=== PATIENT | female | born 1930 | race Caucasian/White ===

== ENCOUNTER 2016-12-26 16:53 | Emergency (ER) | payer MEDICARE, OTHER ==
[~2016-12-26] VITALS: Ht 154.9 cm; Wt 59.1 kg
[~2016-12-26 16:53] MED LIST: AMLO-39 PO; ASPI-973 PO; ATOR20TA PO; PANT40TA3 PO; SERT100T9 PO; TRAV5DRO OP; [UNRECOGNIZED DRUG - OTHER] OU
[2016-12-26 17:22] VITALS: BP 172/68; PULSE 81; RESP 12; O2SAT 91
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
[2016-12-26] MEDS ORDERED: HYDROmorphone 0.5 mg/0.5 mL iSecure Syringe IVPUSH PRN (18:35)
[2016-12-26] MEDS ORDERED: Ondansetron 2 mg/mL 2 mL Inj IVPUSH ONE (18:35)
[2016-12-26 18:44] LABS: BASOPHILS % (AUTO) 1.1 % (0-3); EOSINOPHILS % (AUTO) 2.7 % (0-5); MONOCYTES % (AUTO) 10.9 % (4-12); Mean Corpuscular Hemoglobin 30.1 pg (27.0-35.0); Mean Corpuscular Volume 92.7 fL (81-100); NEUTROPHILS % (AUTO) 62.3 % (40-74); Platelet Count 207 bil/L (150-400)
--- NOTE | 2016-12-26 19:17 | DRSVH ---
PROCEDURE: X-RAY LUMBAR SPINE, 2 OR 3 VIEW INDICATIONS: Low back pain, with fracture TECHNIQUE: 3 views of the lumbar spine were acquired. COMPARISON: [facility] Outside [facility], MR, MR LUMBAR SPINE WO CON, 10/02/2016, 14:52. Outside Facility, RG, X R L-SPINE 2-3V, 12/24/2016, 13:32. [facility], CR, XR LUMBAR SPINE 2 OR 3VW, 03/05/2016, 12:28. FINDINGS: Bones: Prominent dextroconvex scoliotic curvature of the thoracolumbar spine. There is severe multile bethany degenerative changes present including disc and foraminal narrowing. Significant compression defo rmity is present at T12,, with interval worsening compared to 10/02/16. However, it appears grossly un changed compared to 12/24/16. Soft tissues: Overlying bowel gas pattern is normal. No suspicious soft tissue calcifications. Aor tic atherosclerotic calcifications are present. IMPRESSION: T12 compression deformity with interval worsening compared to 10/02/16 but stable compared to 12/24/16. Dictated by: Lulu Araujo M.D. on 12/26/2016 at 19:13 Approved by: Lulu Araujo M.D. on 12/26/2016 at 19:15
[2016-12-26] MEDS ORDERED: Promethazine Inj 25 MG in Dextrose 5%-Pha MIX 50 ML IV ONE (19:50)
[2016-12-26] MEDS ORDERED: _Ondansetron ODT 4 mg Tablet PO PRN (21:20)
[2016-12-26] MEDS ORDERED: _HYDROcodone/APAP 5-325 mg Tablet PO PRN (21:20)
[2016-12-26] MEDS ORDERED: ONDA4TAB9 PO (22:21)
[2016-12-26] MEDS ORDERED: HYDR-4003 PO (22:21)
[2016-12-26 22:39] VITALS: BP 127/48; PULSE 74; RESP 18; O2SAT 92
== END 2016-12-26 22:41 | disposition home or self-care (01) ==
LOC: EDBD 16:53 → EDUNIT# 16:53 → SED 16:53
DX: M48.54XA Collapsed vertebra, not elsewhere classified, thoracic region, initial encounter for fracture (principal); M54.5 Low back pain; G89.29 Other chronic pain; R11.2 Nausea with vomiting, unspecified; I10 Essential (primary) hypertension; F32.9 Major depressive disorder, single episode, unspecified; F41.9 Anxiety disorder, unspecified; M19.90 Unspecified osteoarthritis, unspecified site; Z79.82 Long term (current) use of aspirin; Z88.0 Allergy status to penicillin
CPT/HCPCS: 36415; 72100; 80053; 83690; 85025; 96374; 96375; 99285; J1170; J2405; J2550